=== PATIENT | female | born 1995 | race Two or more races ===

== ENCOUNTER 2018-12-25 15:34 | Emergency (ER) | payer SELFPAY ==
[~2018-12-25] VITALS: Ht 162.6 cm; Wt 68.0 kg
--- NOTE | 2018-12-25 15:41 | NUR ---
ED Nurse Note: called patient, patient not in waiting room.
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
[2018-12-25 16:13] VITALS: BP 133/79
--- NOTE | 2018-12-25 16:53 | Diagnostic Imaging Report ---
Indication: Orbital and maxillofacial trauma and pain Technique: Continuous helical transaxial imaging of the orbits/maxillofacial structures obtained without intravenous contrast administration. Coronal 2-D reformats were also obtained. Study obtained in a Siemens sensation [address] Automatic Exposure Control was utilized. Total Dose length Product (DLP): 602.[address] Dose Index Volume (CTDIvol): 28.19 mGy Comparison: None Findings: There is no evidence of an acute fracture. Paranasal sinuses and mastoids are clear. Soft tissues are unremarkable. IMPRESSION: Negative facial CT The CT scanner at [facility] is accredited by the [employer] and the scans are performed using dose optimization techniques as appropriate to a performed exam including Automatic Exposure control.
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
[2018-12-25] MEDS ORDERED: IBU800 MG PO (17:23)
[2018-12-25] MEDS ORDERED: ZOFRAN4 M1 ORAL (17:23)
[2018-12-25 17:31] VITALS: BP 129/82
[2018-12-25 17:35] VITALS: BP 129/82
--- NOTE | 2018-12-25 17:35 | NUR ---
ER DISCHARGE NOTE: Patient is cleared to be discharged per ERMD, pt is aox4, on room air, with stable vital signs. pt was given dc and prescription instructions, pt was able to verbalize understanding, pt id band removed. pt is able to ambulate with steady gait. pt took all belongings.
== END 2018-12-25 17:35 | disposition home or self-care (01) ==
LOC: EMR 16:15
DX: S00.83XA Contusion of other part of head, initial encounter (principal); V49.9XXA Car occupant (driver) (passenger) injured in unspecified traffic accident, initial encounter; Y92.410 Unspecified street and highway as the place of occurrence of the external cause; R51 Headache; R42 Dizziness and giddiness; R11.0 Nausea
CPT/HCPCS: 70486; 99284